=== PATIENT | male | born 1985 | race Caucasian/White ===

== ENCOUNTER 2023-09-18 15:25 | Outpatient (OUT) | payer BC, SELFPAY ==
--- NOTE | 2023-09-18 | XR_ITS ---
The [address] [address] Patient Name: SAGE RODAS MRN: [id number] date: 1985 Sex: M Assigned Patient Location: [facility] Current Patient Location: Accession/Order Number: [id number] Exam Date: 09/18/2023 15:44 Report Date: 09/20/2023 11:57 At the request of: SAMSON HAWKINS Procedure: XR ankle HAILEY min 3V EXAMINATION: XR foot HAILEY min 3V, XR ankle HAILEY min 3V HISTORY: BILATERAL FOOT PAIN COMPARISON: No relevant comparison available. FINDINGS: RIGHT FINDINGS: BONES: Mild narrowing of the ankle joint space and small periarticular degenerative osteophytes. Mild degenerative enthesopathic spurring of the calcaneus. Osseous spurring versus heterotopic bone formation along lateral margin of calcaneus. Mild degenerative changes of the midfoot and first metatarsophalangeal joint. SOFT TISSUES: No visible soft tissue swelling. OTHER: Negative. LEFT FINDINGS: BONES: Mild narrowing of the ankle joint space and small periarticular degenerative osteophytes. Osseous spurring versus heterotopic bone formation along lateral margin of calcaneus. Mild degenerative changes of the midfoot and first metatarsophalangeal joint. SOFT TISSUES: No visible soft tissue swelling. OTHER: Negative. XR/XR ankle HAILEY min 3V IMPRESSION: RIGHT CONCLUSION: 1. Mild degenerative changes of the ankle and foot. No acute abnormality. LEFT CONCLUSION: 1. Mild degenerative changes of the ankle and foot. No acute abnormality. Electronically authenticated by: BOBBY BOB Date: 09/20/2023 11:57
--- NOTE | 2023-09-18 | XR_ITS ---
The [address] [address] Patient Name: SAGE RODAS MRN: [id number] date: 1985 Sex: M Assigned Patient Location: [facility] Current Patient Location: Accession/Order Number: [id number] Exam Date: 09/18/2023 15:44 Report Date: 09/20/2023 11:57 At the request of: SAMSON HAWKINS Procedure: XR foot HAILEY min 3V EXAMINATION: XR foot HAILEY min 3V, XR ankle HAILEY min 3V HISTORY: BILATERAL FOOT PAIN COMPARISON: No relevant comparison available. FINDINGS: RIGHT FINDINGS: BONES: Mild narrowing of the ankle joint space and small periarticular degenerative osteophytes. Mild degenerative enthesopathic spurring of the calcaneus. Osseous spurring versus heterotopic bone formation along lateral margin of calcaneus. Mild degenerative changes of the midfoot and first metatarsophalangeal joint. SOFT TISSUES: No visible soft tissue swelling. OTHER: Negative. LEFT FINDINGS: BONES: Mild narrowing of the ankle joint space and small periarticular degenerative osteophytes. Osseous spurring versus heterotopic bone formation along lateral margin of calcaneus. Mild degenerative changes of the midfoot and first metatarsophalangeal joint. SOFT TISSUES: No visible soft tissue swelling. OTHER: Negative. XR/XR foot HAILEY min 3V IMPRESSION: RIGHT CONCLUSION: 1. Mild degenerative changes of the ankle and foot. No acute abnormality. LEFT CONCLUSION: 1. Mild degenerative changes of the ankle and foot. No acute abnormality. Electronically authenticated by: BOBBY BOB Date: 09/20/2023 11:57
== END 2023-09-18 15:26 | disposition home or self-care (01) ==
LOC: RAD 15:30
PROVIDERS: Visit Provider Podiatrist Foot & Ankle Surgery
DX: M25.571 Pain in right ankle and joints of right foot (principal); M25.572 Pain in left ankle and joints of left foot; M19.072 Primary osteoarthritis, left ankle and foot; M19.071 Primary osteoarthritis, right ankle and foot
CPT/HCPCS: 73610; 73630

== ENCOUNTER 2023-10-02 08:22 | Outpatient (OUT) | payer BC, SELFPAY ==
--- NOTE | 2023-10-02 08:59 | P.CN_ITS ---
Consult Note: HPI Data of Consult Patient: new to practice Consult date: 10/02/23 Requesting Physician: Ashanti Gil MD Primary Care Provider: Non-Staff Physician, Consult Narrative Reason for consult: establish Narrative: Roldan Petit 38 year old male presents for evaluation and management of pain. 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 Patients pain today is low back, bilateral calves down to feet. Patient reporting pain is 8- 9/10 sharp aching, pain worse with standing walking and activity. Patient has noticed increase in imbalance and pain recently, podiatry is fitting the patient for bilateral ankle/foot bracing and recommending a fusion surgery. Patient has lost his Dad at age 50, and grandfather recently age 85 as a result of complications from CMT. Patient would like to discuss medication and injection options today. Patient reports 2-3x/week nightly alcohol intake and marijuana use, as well as marijuana cream for his chronic pain. He has been on gabapentin in the past and meloxicam which were not beneficial. cc:: CC: Ashanti Gil MD Review of Systems ROS Status of ROS 10 or more systems reviewed and unremark able except as noted in history and below Musculoskeletal Reports: back pain, extremity pain, joint swelling, muscle cramps and muscle weakness Exam Constitutional Documenting provider has reviewed patient's vital signs: yes (BP elevated, asymptomatic) Common normals: no apparent distress, oriented x3, healthy appearing, alert and well nourished General appearance: cooperative Nutritional appearance: obese HENMT Common normals: normocephalic, hearing grossly normal bilaterally and moist oral mucous membranes Head and scalp: normocephalic Eye Common normals: PERRL Pupil: PERRL Neck & C-Spine Common normals: full ROM General: normal visual inspection Chest Common normals: inspection of chest normal Respiratory Common normals: normal respiratory effort, no retractions and no use of accessor y muscles Back & Pelvis Lumbar spine/lower back: ROM limited, pain with ROM, straight leg raise positive right and straight leg raise positive left Sacroiliac joints: SI joints normal Other: pain with flexion and extension, positive facet loading Extremity Common normals: full ROM Right lower extremity: foot and digits Left lower extremity: foot and digits Other: pain and neuropathy to bilateral feet, ankles, calves Neuro Common normals: oriented x3, CN's II-XII intact bilaterally, moves all extremities, no focal motor deficits, no sensory deficits noted and deep tendon reflexes 2+ bilaterally Sensorium/orientation: alert Gait (neuro): antalgic Motor exam: no movement abnormalities noted and strength abnormal (4/5 BLE) Psych Common normals: mental status grossly normal, thought process normal, cooperative, affect normal, speech normal and activity/motor behavior normal Speech: normal speech Thought process: normal thought process Assessment and Plan Assessment and Plan (1) Lumbago: Qualifiers: Back pain laterality: midline Chronicity: chronic Sciatica presence: unspecified whether sciatica present Qualified Code(s): M54.50 - Low back pain, unspecified; G89.29 - Other chronic pain (2) Lumbar radiculopathy: (3) Neuropathy: (4) Iwsvexr-Zooix-Hcucq disease: (5) Marijuana abuse: (6) Alcohol abuse: (7) Elevated blood pressure reading: (8) Obesity: Qualifiers: Obesity classification: unspecified obesity classification Obesity type: due to excess calories Serious obesity comorbidity presence: without serious comorbidity Qualified Code(s): E66.09 - Other obesity due to excess calories Plan extensive conversation today about risks vs benefits of medication therapy. Pat ient instructed to stop drinking alcohol, to which he is agreeable to, and will work on marijuana cessation. Patient denies sleep apnea, discussed weight today and importance of weight loss efforts. Start duloxetine 60mg hs, titrate up in the future. discussed risks vs benefits and potential side effects. caution with elevated BP. Avoid nortriptyline, amitriptyline, lyrica at this time. can consider in the future monitor BP at home f/u with PCP regarding asymptomatic HTN lumbar spine xray with flexion and extension consider lumbar MRI in the future if necessary consider PNS/sympathetic nerve blocks in the future [employer] reviewed and signed continue HEP as tolerated continue f/u with podiatry, getting braces for bilateral feet and ankles f/u with Dr Gil for xray review, medication management, and consideration of injection therapy/nerve stimulators
== END 2023-10-02 08:23 | disposition home or self-care (01) ==
LOC: PM 08:26
PROVIDERS: Visit Provider Anesthesiology
DX: M54.50 Low back pain, unspecified (principal); M54.16 Radiculopathy, lumbar region; G62.9 Polyneuropathy, unspecified; G60.0 Hereditary motor and sensory neuropathy; F12.10 Cannabis abuse, uncomplicated; F10.10 Alcohol abuse, uncomplicated; I10 Essential (primary) hypertension; E66.09 Other obesity due to excess calories
CPT/HCPCS: G0463